=== PATIENT | male | born 1995 | race Caucasian/White ===

== ENCOUNTER 2018-03-06 13:16 | Emergency (ER) | payer MEDICAID ==
[2018-03-06] MEDS: SOD CHLORIDE 0.9% 1,000 ML IV (15:26)
[2018-03-06] MEDS: LORAZEPAM 2 MG INJ IV (15:27)
== END 2018-03-06 16:38 | disposition home or self-care (01) ==
LOC: FTE 13:16
DX: F10.239 Alcohol dependence with withdrawal, unspecified (principal); S80.811A Abrasion, right lower leg, initial encounter; S90.511A Abrasion, right ankle, initial encounter; R11.10 Vomiting, unspecified; V03.10XA Pedestrian on foot injured in collision with car, pick-up truck or van in traffic accident, initial encounter
CPT/HCPCS: 73590; 73610-RT; 96361; 96374; 99284-25